=== PATIENT | female | born 1945 | race Caucasian/White ===

== ENCOUNTER 2018-03-04 11:41 | Outpatient (REF) | payer MEDICARE, SELFPAY ==
[2018-03-05 01:59] LABS: HCT 36.2 % (36.0-46.0); HGB 11.3 g/dL (12.0-15.5); Mean Corp. HGB Concentration 31.2 g/dL (32.0-36.0); Mean Corpuscular Hemoglobin 29.4 pg (27.0-33.0); Mean Corpuscular Volume 94.3 fL (80-95); Mean Platelet Volume 12.8 fL (8.0-11.0); Platelet Count 220 x1000/uL (130-400); RBC 3.84 m/cumm (4.00-5.20); RBC Distribution Width 14.3 % (11.7-14.6); White Blood Cell Count 5.42 k/cumm (4.4-10.8)
[2018-03-05 02:09] LABS: Anion Gap 4.3 mmol/L (3-11); BUN 36 mg/dL (7-18); CO2 31.7 mmol/L (21.0-32.0); CREATININE 1.38 mg/dL (0.55-1.02); Calcium 9.1 mg/dL (8.5-10.1); Chloride 104 mmol/L (98-107); Estimated GFR 37.27 (mL/min/1.73m2); Glucose 97 mg/dL (70-100); Potassium 4.4 mmol/L (3.5-5.1); Sodium 140 mmol/L (136-145)
== END 2018-03-04 11:42 ==
LOC: NCHCN 11:41
PROVIDERS: PCP Internal Medicine; Visit Provider Internal Medicine
DX: R53.83 Other fatigue (principal)
CPT/HCPCS: 80048; 85027; 84443

== ENCOUNTER 2019-06-01 13:34 | Outpatient (REF) | payer MEDICARE, MEDICAID, SELFPAY ==
[2019-06-01 21:01] LABS: TSH (W/Ref FT4) 0.09 uIU/mL (0.36-3.74)
[2019-06-01 23:10] LABS: FREE T4 1.38 ng/dL (0.76-1.46)
== END 2019-06-01 13:54 ==
LOC: NCHCN 13:34
PROVIDERS: PCP Internal Medicine; Visit Provider Internal Medicine
DX: E03.9 Hypothyroidism, unspecified (principal)
CPT/HCPCS: 84439; 84443

== ENCOUNTER 2019-07-12 12:20 | Outpatient (REF) | payer MEDICARE, MEDICAID, SELFPAY ==
[2019-07-12 21:16] LABS: TSH 0.24 uIU/mL (0.36-3.74)
== END 2019-07-12 12:40 ==
LOC: NCHCN 12:20
PROVIDERS: PCP Internal Medicine; Visit Provider Internal Medicine
DX: E03.9 Hypothyroidism, unspecified (principal)
CPT/HCPCS: 84443

== ENCOUNTER 2019-08-31 00:02 | Outpatient (REF) | payer MEDICARE, MEDICAID, SELFPAY ==
[2019-08-30 21:57] LABS: TSH 1.38 uIU/mL (0.36-3.74)
== END 2019-08-31 00:22 ==
LOC: NCHCN 00:02
PROVIDERS: PCP Internal Medicine; Visit Provider Internal Medicine
DX: E03.9 Hypothyroidism, unspecified (principal)
CPT/HCPCS: 84443

== ENCOUNTER 2020-01-06 16:27 | Outpatient (REF) | payer MEDICARE, MEDICAID, SELFPAY ==
[2020-01-06 20:40] LABS: HCT 38.7 % (36.0-46.0); HGB 12.3 g/dL (12.0-15.5); Mean Corp. HGB Concentration 31.8 g/dL (32.0-36.0); Mean Corpuscular Hemoglobin 30.1 pg (27.0-33.0); Mean Corpuscular Volume 94.9 fL (80-95); Mean Platelet Volume 13.1 fL (8.0-11.0); Platelet Count 241 x1000/uL (130-400); RBC 4.08 m/cumm (4.00-5.20); RBC Distribution Width 13.7 % (11.7-14.6)
[2020-01-06 21:10] LABS: ALT 25 U/L (14-59); AST 26 U/L (15-37); Albumin 4.5 g/dL (3.4-5.0); Alkaline Phosphatase 78 U/L (46-116); BUN 30 mg/dL (7-18); Bilirubin, Total 0.5 mg/dL (0.2-1.0); CREATININE 1.38 mg/dL (0.55-1.02); Chloride 102 mmol/L (98-107); Estimated GFR 37.17 (mL/min/1.73m2); Glucose 98 mg/dL (74-106); Potassium 4.5 mmol/L (3.5-5.1); Sodium 140 mmol/L (136-145); TSH 1.09 uIU/mL (0.36-3.74); Total Protein 7.4 g/dL (6.4-8.2)
== END 2020-01-06 16:47 ==
LOC: NCHCN 16:27
PROVIDERS: PCP Internal Medicine; Visit Provider Internal Medicine
DX: E03.9 Hypothyroidism, unspecified (principal); I10 Essential (primary) hypertension; R63.4 Abnormal weight loss
CPT/HCPCS: 80053; 85027; 84443

== ENCOUNTER 2020-05-03 22:26 | Outpatient (REF) | payer MEDICARE, MEDICAID, SELFPAY ==
[2020-05-03 22:22] LABS: Absolute Basophil Count 0.02 10^3/uL (0.0-0.2); Absolute Eosinophil Count 0.26 10^3/uL (0.0-0.7); Absolute Lymphocyte Count 1.08 10^3/uL (1.2-3.4); Absolute Monocyte Count 0.51 10^3/uL (0.1-0.8); Absolute Neutrophil Count 2.49 10^3/uL (1.2-6.7); Basophils % 0.5; HCT 35.4 % (36.0-46.0); HGB 11.4 g/dL (11.2-15.7); Lymphocytes % 24.8; MCH 31.1 pg (27.0-33.0); MCHC 32.2 % (32.0-36.0); MCV 96.5 fL (80-95); MPV 13.5 fL (8.0-11.0); Monocytes % 11.7; Nucleated RBC 0 %; RBC 3.67 10^6/uL (3.93-5.22); RDW 13.4 % (11.7-14.6); RDW-SD 47.7 fL; WBC 4.36 10^3/uL (4.4-10.8)
[2020-05-03 22:58] LABS: Platelet Count 202 10^3/uL (130-400)
[2020-05-03 23:08] LABS: ALT 88 U/L (14-59); AST 74 U/L (15-37); Albumin 4.4 g/dL (3.4-5.0); Alkaline Phosphatase 142 U/L (46-116); Anion Gap 6.9 mmol/L (3-11); BUN 45 mg/dL (7-18); Bilirubin, Total 0.3 mg/dL (0.2-1.0); CO2 30.1 mmol/L (21.0-32.0); CREATININE 1.47 mg/dL (0.55-1.02); Calcium 9.7 mg/dL (8.5-10.1); Chloride 102 mmol/L (98-107); Estimated GFR 34.47 (mL/min/1.73m2); Glucose 127 mg/dL (74-106); Potassium 4.5 mmol/L (3.5-5.1); Sodium 139 mmol/L (136-145); TSH 0.72 uIU/mL (0.36-3.74); Total Protein 7.2 g/dL (6.4-8.2); Vitamin B12 652 pg/mL (193-986)
[2020-05-04 04:28] LABS: Vitamin D 25 Total 46.8 ng/ml (30-100)
== END 2020-05-03 22:46 ==
LOC: NCHCN 22:26
PROVIDERS: PCP Internal Medicine; Visit Provider Internal Medicine
DX: R41.0 Disorientation, unspecified (principal); R41.3 Other amnesia; E03.9 Hypothyroidism, unspecified
CPT/HCPCS: 80053; 82306; 82607; 84443; 85025

== ENCOUNTER 2020-05-15 18:54 | Outpatient (REF) | payer MEDICARE, MEDICAID, SELFPAY ==
[2020-05-15 21:53] LABS: ALT 37 U/L (14-59); AST 27 U/L (15-37); Albumin 4.4 g/dL (3.4-5.0); Alkaline Phosphatase 129 U/L (46-116); Bilirubin, Total 0.3 mg/dL (0.2-1.0); Total Protein 7.2 g/dL (6.4-8.2)
[2020-05-23 17:34] LABS: Hepatitis B Surface Ab Positive; Hepatitis B Surface Ag Negative (Negative); Hepatitis C Ab w Rflx HCV PCR Negative (Negative)
[2020-05-23 17:35] LABS: HBs Antibody, Quant 328 mIU/mL (See Note)
== END 2020-05-15 19:14 ==
LOC: NCHCN 18:54
PROVIDERS: PCP Internal Medicine; Visit Provider Internal Medicine
DX: R74.8 Abnormal levels of other serum enzymes (principal)
CPT/HCPCS: 80076; 86706; 86803; 87340; 86704

== ENCOUNTER 2020-05-26 15:38 | Outpatient (REF) | payer MEDICARE, MEDICAID, SELFPAY ==
[2020-05-29 19:58] LABS: Patient Race White; SARS-CoV-2 RNA Undetected (Undetected); SARS-CoV-2 Specimen Source Nasal
== END 2020-05-26 15:58 ==
LOC: NCHCN 15:38
PROVIDERS: PCP Internal Medicine; Visit Provider Internal Medicine
DX: Z20.828 Contact with and (suspected) exposure to other viral communicable diseases (principal)
CPT/HCPCS: U0003

== ENCOUNTER 2020-07-31 15:38 | Outpatient (REF) | payer MEDICARE, MEDICAID, SELFPAY ==
[2020-07-31 21:08] LABS: ALT 66 U/L (14-59); AST 51 U/L (15-37); Albumin 4.4 g/dL (3.4-5.0); Alkaline Phosphatase 146 U/L (46-116); Anion Gap 3.8 mmol/L (3-11); BUN 36 mg/dL (7-18); Bilirubin, Total 0.3 mg/dL (0.2-1.0); CO2 32.2 mmol/L (21.0-32.0); CREATININE 1.31 mg/dL (0.55-1.02); Calcium 9.9 mg/dL (8.5-10.1); Chloride 102 mmol/L (98-107); Estimated GFR 39.37 (mL/min/1.73m2); Glucose 93 mg/dL (74-106); Potassium 4.2 mmol/L (3.5-5.1); Sodium 138 mmol/L (136-145); Total Protein 7.5 g/dL (6.4-8.2)
[2020-07-31 21:12] LABS: Hemoglobin A1C 5.5 % (<5.7)
[2020-07-31 21:44] LABS: COMMENT (LAB VIEW ONLY) 143.26 mg/dL; Microalb ug/mg Crea 23.9 ug/mg Cr
== END 2020-07-31 15:58 ==
LOC: NCHCN 15:38
PROVIDERS: PCP Internal Medicine; Visit Provider Internal Medicine
DX: R13.10 Dysphagia, unspecified (principal); R94.5 Abnormal results of liver function studies; N18.9 Chronic kidney disease, unspecified; R35.8 Other polyuria; G89.29 Other chronic pain; Z79.891 Long term (current) use of opiate analgesic
CPT/HCPCS: 80053; 82043; 82570; 83036

== ENCOUNTER 2020-09-29 16:45 | Outpatient (REF) | payer MEDICARE, MEDICAID, SELFPAY ==
[2020-09-29 21:26] LABS: ALT 28 U/L (14-59); AST 26 U/L (15-37); Albumin 4.1 g/dL (3.4-5.0); Alkaline Phosphatase 134 U/L (46-116); Anion Gap 4.7 mmol/L (3-11); BUN 39 mg/dL (7-18); Bilirubin, Total 0.3 mg/dL (0.2-1.0); CO2 34.3 mmol/L (21.0-32.0); CREATININE 1.2 mg/dL (0.55-1.02); Chloride 104 mmol/L (98-107); Estimated GFR 43.56 (mL/min/1.73m2); Glucose 88 mg/dL (74-106); Potassium 4.2 mmol/L (3.5-5.1); Sodium 143 mmol/L (136-145); Total Protein 7.1 g/dL (6.4-8.2)
== END 2020-09-29 16:46 | disposition home or self-care (01) ==
LOC: NCHCN 16:45
PROVIDERS: PCP Internal Medicine; Visit Provider Internal Medicine
DX: I10 Essential (primary) hypertension (principal); N18.9 Chronic kidney disease, unspecified
CPT/HCPCS: 80053

== ENCOUNTER 2021-01-01 17:02 | Outpatient (REF) | payer MEDICARE, MEDICAID, SELFPAY ==
[2021-01-01 22:06] LABS: ALT 21 U/L (14-59); AST 22 U/L (15-37); Alkaline Phosphatase 89 U/L (46-116); Anion Gap 6.5 mmol/L (3-11); BUN 36 mg/dL (7-18); Bilirubin, Total 0.6 mg/dL (0.2-1.0); CO2 32.5 mmol/L (21.0-32.0); CREATININE 1.3 mg/dL (0.55-1.02); Calcium 9.9 mg/dL (8.5-10.1); Chloride 104 mmol/L (98-107); Estimated GFR 39.72 (mL/min/1.73m2); Glucose 95 mg/dL (74-106); Magnesium 2.4 mg/dL (1.8-2.4); Potassium 4.1 mmol/L (3.5-5.1); Sodium 143 mmol/L (136-145); Total Protein 6.5 g/dL (6.4-8.2)
== END 2021-01-01 17:03 | disposition home or self-care (01) ==
LOC: NCHCN 17:02
PROVIDERS: PCP Internal Medicine; Visit Provider Internal Medicine
DX: B35.1 Tinea unguium (principal); R79.89 Other specified abnormal findings of blood chemistry
CPT/HCPCS: 80053; 83735

== ENCOUNTER 2021-01-22 18:38 | Outpatient (REF) | payer MEDICARE, MEDICAID, SELFPAY ==
[2021-01-22 21:08] LABS: Abs Immature Grans 0.03 10^3/uL (0.0-0.06); Absolute Basophil Count 0.05 10^3/uL (0.0-0.2); Absolute Eosinophil Count 0.13 10^3/uL (0.0-0.7); Absolute Lymphocyte Count 0.96 10^3/uL (1.2-3.4); Absolute Monocyte Count 1.18 10^3/uL (0.1-0.8); Absolute Neutrophil Count 7.09 10^3/uL (1.2-6.7); Basophils % 0.5; Eosinophils % 1.4; HCT 38.7 % (36.0-46.0); HGB 12.2 g/dL (11.2-15.7); Immature Grans % 0.3; Lymphocytes % 10.2; MCH 30.3 pg (27.0-33.0); MCHC 31.5 % (32.0-36.0); MPV 12.5 fL (8.0-11.0); Monocytes % 12.5; Neutrophils % 75.1; Nucleated RBC 0 %; Platelet Count 266 10^3/uL (130-400); RBC 4.03 10^6/uL (3.93-5.22); RDW 13.1 % (11.7-14.6); RDW-SD 46.5 fL; WBC 9.44 10^3/uL (4.4-10.8)
[2021-01-22 21:34] LABS: ALT 23 U/L (14-59); AST 25 U/L (15-37); Albumin 3.8 g/dL (3.4-5.0); Alkaline Phosphatase 119 U/L (46-116); Anion Gap 6.8 mmol/L (3-11); BUN 34 mg/dL (7-18); Bilirubin, Total 0.2 mg/dL (0.2-1.0); CO2 29.2 mmol/L (21.0-32.0); CREATININE 1.2 mg/dL (0.55-1.02); Calcium 9.5 mg/dL (8.5-10.1); Chloride 105 mmol/L (98-107); Estimated GFR 43.56 (mL/min/1.73m2); Glucose 136 mg/dL (74-106); Potassium 4.5 mmol/L (3.5-5.1); Sodium 141 mmol/L (136-145); Total Protein 6.6 g/dL (6.4-8.2)
== END 2021-01-22 18:39 | disposition home or self-care (01) ==
LOC: NCHCN 18:38
PROVIDERS: PCP Internal Medicine; Visit Provider Nurse Practitioner Family
DX: R10.9 Unspecified abdominal pain (principal)
CPT/HCPCS: 80053; 85025

== ENCOUNTER 2021-06-11 22:31 | Outpatient (REF) | payer MEDICARE, MEDICAID, SELFPAY ==
[2021-06-11 22:48] LABS: Abs Immature Grans 0.01 10^3/uL (0.0-0.06); Absolute Basophil Count 0.04 10^3/uL (0.0-0.2); Absolute Eosinophil Count 0.23 10^3/uL (0.0-0.7); Absolute Lymphocyte Count 0.93 10^3/uL (1.2-3.4); Absolute Monocyte Count 0.55 10^3/uL (0.1-0.8); Eosinophils % 5.7; HCT 37.4 % (36.0-46.0); HGB 11.5 g/dL (11.2-15.7); Immature Grans % 0.2; Lymphocytes % 22.9; MCH 27.6 pg (27.0-33.0); MCHC 30.7 % (32.0-36.0); MCV 89.7 fL (80-95); Monocytes % 13.5; Neutrophils % 56.7; Nucleated RBC 0 %; Platelet Count 256 10^3/uL (130-400); RBC 4.17 10^6/uL (3.93-5.22); RDW 14.5 % (11.7-14.6); RDW-SD 47.9 fL; WBC 4.06 10^3/uL (4.4-10.8)
[2021-06-11 23:27] LABS: ALT 17 U/L (14-59); AST 17 U/L (15-37); Albumin 3.7 g/dL (3.4-5.0); Alkaline Phosphatase 104 U/L (46-116); Anion Gap 7.1 mmol/L (3-11); BUN 25 mg/dL (7-18); Bilirubin, Total 0.1 mg/dL (0.2-1.0); CO2 30.9 mmol/L (21.0-32.0); CREATININE 1.3 mg/dL (0.55-1.02); Calcium 9.1 mg/dL (8.5-10.1); Chloride 104 mmol/L (98-107); Estimated GFR 39.61 (mL/min/1.73m2); Glucose 106 mg/dL (74-106); Potassium 4.3 mmol/L (3.5-5.1); Sodium 142 mmol/L (136-145); TSH 0.13 uIU/mL (0.36-3.74); Total Protein 6.7 g/dL (6.4-8.2); Vitamin B12 261 pg/mL (193-986)
== END 2021-06-11 22:32 | disposition home or self-care (01) ==
LOC: NCHCN 22:31
PROVIDERS: PCP Internal Medicine; Visit Provider Internal Medicine
DX: D64.9 Anemia, unspecified (principal); R79.89 Other specified abnormal findings of blood chemistry; M72.0 Palmar fascial fibromatosis [Dupuytren]
CPT/HCPCS: 80053; 82607; 82670; 84443; 85025

== ENCOUNTER 2021-08-20 21:18 | Outpatient (REF) | payer MEDICARE, MEDICAID, SELFPAY ==
[2021-08-20 21:38] LABS: Iron 68 ug/dL (50-170); Total Iron Binding Capacity 302 ug/dL (250-450); Transferrin Sat 23 % (15-50)
[2021-08-21 17:28] LABS: Ferritin 73 ng/mL (10-291)
== END 2021-08-20 21:19 | disposition home or self-care (01) ==
LOC: NCHCN 21:18
PROVIDERS: PCP Internal Medicine; Visit Provider Internal Medicine
DX: D64.9 Anemia, unspecified (principal); E53.8 Deficiency of other specified B group vitamins; E55.9 Vitamin D deficiency, unspecified
CPT/HCPCS: 82306; 82728; 83540; 83550

== ENCOUNTER 2021-11-01 18:46 | Outpatient (REF) | payer MEDICARE, MEDICAID, SELFPAY ==
[2021-11-01 21:50] LABS: Bilirubin Negative (Negative); Blood Trace-intact (Negative); Clarity Cloudy (Clear); Glucose Negative (Negative); Ketones Negative (Negative); Leukocyte Esterase Small (Negative); Nitrite Negative (Negative); Specific Gravity 1.025 (1.005-1.025); Urobilinogen 0.2 EU/dL (Up TO 0.2)
[2021-11-01 22:01] LABS: Bacteria Packed HPF (Negative); Epithelial Cells Moderate HPF (Negative); Other Cells Moderate Renal (Negative); WBC >50 HPF (0-5)
[2021-11-01 22:02] LABS: C & S Indicated? Yes; Crystals Negative HPF (Negative); Mucus Negative (Negative)
== END 2021-11-01 18:47 | disposition home or self-care (01) ==
LOC: NCHCN 18:46
PROVIDERS: PCP Internal Medicine; Visit Provider Internal Medicine
DX: R39.89 Other symptoms and signs involving the genitourinary system (principal)
CPT/HCPCS: 87077; 81003; 81015; 87086; 87186

== ENCOUNTER 2021-12-11 21:20 | Outpatient (REF) | payer MEDICARE, MEDICAID, SELFPAY ==
[2021-12-11 21:35] LABS: Abs Immature Grans 0.01 10^3/uL (0.0-0.06); Absolute Basophil Count 0.04 10^3/uL (0.0-0.2); Absolute Eosinophil Count 0.15 10^3/uL (0.0-0.7); Absolute Lymphocyte Count 1.62 10^3/uL (1.2-3.4); Absolute Monocyte Count 0.54 10^3/uL (0.1-0.8); Absolute Neutrophil Count 3.95 10^3/uL (1.2-6.7); Basophils % 0.6; Eosinophils % 2.4; HCT 35.5 % (36.0-46.0); HGB 11.1 g/dL (11.2-15.7); Immature Grans % 0.2; Lymphocytes % 25.7; MCH 30.4 pg (27.0-33.0); MCHC 31.3 % (32.0-36.0); MCV 97 fL (80-95); MPV 11.8 fL (8.0-11.0); Monocytes % 8.6; Neutrophils % 62.5; Platelet Count 289 10^3/uL (130-400); RBC 3.65 10^6/uL (3.93-5.22); RDW 13.7 % (11.7-14.6); RDW-SD 49.1 fL; WBC 6.31 10^3/uL (4.4-10.8)
[2021-12-11 21:37] LABS: ESR 18 mm/hr (0-30)
[2021-12-11 21:41] LABS: Bilirubin Small (Negative); Blood Negative (Negative); Clarity Clear (Clear); Glucose Negative (Negative); Ketones Trace mg/dL (Negative); Leukocyte Esterase Trace (Negative); Nitrite Negative (Negative); Specific Gravity 1.025 (1.005-1.025); Urobilinogen 0.2 EU/dL (Up TO 0.2); pH 5.5 (5-8)
[2021-12-11 21:42] LABS: C-Reactive Protein 1.08 mg/dL (0.0-0.3)
[2021-12-11 21:55] LABS: Bacteria Few HPF (Negative); C & S Indicated? No/Sq. Contamination; Crystals Negative HPF (Negative); Epithelial Cells Many HPF (Negative); Mucus Moderate (Negative); RBC 0-2 HPF (0-2); WBC 20-50 HPF (0-5)
== END 2021-12-11 21:21 | disposition home or self-care (01) ==
LOC: NCHCN 21:20
PROVIDERS: PCP Internal Medicine; Visit Provider Family Medicine
DX: R53.83 Other fatigue (principal); G31.84 Mild cognitive impairment of uncertain or unknown etiology; Z91.81 History of falling
CPT/HCPCS: 85652; 81003; 81015; 85025; 86140

== ENCOUNTER 2022-03-15 16:29 | Outpatient (REF) | payer MEDICARE, MEDICAID, SELFPAY ==
[2022-03-15 20:55] LABS: Bilirubin Negative (Negative); Blood Negative (Negative); Clarity Clear (Clear); Glucose Negative (Negative); Ketones Negative (Negative); Leukocyte Esterase Negative (Negative); Nitrite Negative (Negative); Specific Gravity 1.015 (1.005-1.025); Urobilinogen 0.2 EU/dL (Up TO 0.2)
== END 2022-03-15 16:30 | disposition home or self-care (01) ==
LOC: NCHCN 16:29
PROVIDERS: PCP Internal Medicine; Visit Provider Internal Medicine
DX: R53.83 Other fatigue (principal); R32 Unspecified urinary incontinence
CPT/HCPCS: 81003

== ENCOUNTER 2022-06-17 13:57 | Outpatient (REF) | payer MEDICARE, MEDICAID, SELFPAY ==
[2022-06-17 15:01] LABS: HCT 33.4 % (36.0-46.0); HGB 10.4 g/dL (11.2-15.7); MCH 30.7 pg (27.0-33.0); MCHC 31.1 % (32.0-36.0); MCV 99 fL (80-95); MPV 11.1 fL (8.0-11.0); Platelet Count 253 10^3/uL (130-400); RBC 3.39 10^6/uL (3.93-5.22); RDW 13.5 % (11.7-14.6); RDW-SD 49.1 fL; WBC 6.28 10^3/uL (4.4-10.8)
[2022-06-17 15:42] LABS: ALT 18 U/L (14-59); AST 27 U/L (15-37); Albumin 3.7 g/dL (3.4-5.0); Alkaline Phosphatase 89 U/L (46-116); Anion Gap 7.3 mmol/L (3-11); BUN 33 mg/dL (7-18); Bilirubin, Total 0.2 mg/dL (0.2-1.0); CO2 29.7 mmol/L (21.0-32.0); CREATININE 1.3 mg/dL (0.55-1.02); Chloride 105 mmol/L (98-107); Estimated GFR 41.83 (mL/min/1.73m2); Glucose 115 mg/dL (74-106); Potassium 4.1 mmol/L (3.5-5.1); Sodium 142 mmol/L (136-145); Vitamin B12 1639 pg/mL (193-986)
== END 2022-06-17 13:58 | disposition home or self-care (01) ==
LOC: NCHCN 13:57
PROVIDERS: PCP Internal Medicine; Visit Provider Internal Medicine
DX: D64.9 Anemia, unspecified (principal); R79.89 Other specified abnormal findings of blood chemistry; R41.3 Other amnesia; E03.9 Hypothyroidism, unspecified
CPT/HCPCS: 80053; 85027; 82607

== ENCOUNTER 2022-06-28 11:14 | Outpatient (REF) | payer MEDICARE, MEDICAID, SELFPAY ==
[2022-06-28 18:36] LABS: Bilirubin Negative (Negative); Blood Negative (Negative); Clarity Clear (Clear); Glucose Negative (Negative); Ketones Negative (Negative); Leukocyte Esterase Trace (Negative); Nitrite Negative (Negative); Urobilinogen 0.2 EU/dL (Up TO 0.2); pH 5.5 (5-8)
[2022-06-28 18:49] LABS: Bacteria Few HPF (Negative); C & S Indicated? Yes; Casts Negative LPF (Negative); Crystals Negative HPF (Negative); Epithelial Cells Few HPF (Negative); Mucus Negative (Negative); RBC 0-2 HPF (0-2)
== END 2022-06-28 11:15 | disposition home or self-care (01) ==
LOC: NCHCN 11:14
PROVIDERS: PCP Internal Medicine; Visit Provider Internal Medicine
DX: R30.0 Dysuria (principal)
CPT/HCPCS: 81003; 81015; 87086

== ENCOUNTER 2023-03-14 12:24 | Outpatient (REF) | payer MEDICARE, MEDICAID, SELFPAY ==
[2023-03-14 15:28] LABS: Abs Immature Grans 0.01 10^3/uL (0.0-0.06); Absolute Basophil Count 0.06 10^3/uL (0.0-0.2); Absolute Eosinophil Count 0.17 10^3/uL (0.0-0.7); Absolute Lymphocyte Count 1.17 10^3/uL (1.2-3.4); Absolute Monocyte Count 0.66 10^3/uL (0.1-0.8); Basophils % 0.9; Eosinophils % 2.6; HCT 31.4 % (36.0-46.0); HGB 9.6 g/dL (11.2-15.7); Immature Grans % 0.2; Lymphocytes % 17.8; MCH 29.4 pg (27.0-33.0); MCHC 30.6 % (32.0-36.0); MCV 96 fL (80-95); MPV 10.7 fL (8.0-11.0); Neutrophils % 68.5; Platelet Count 310 10^3/uL (130-400); RBC 3.27 10^6/uL (3.93-5.22); RDW 12.4 % (11.7-14.6); RDW-SD 43.3 fL; WBC 6.57 10^3/uL (4.4-10.8)
[2023-03-14 17:09] LABS: ALT 16 U/L (14-59); AST 20 U/L (15-37); Albumin 3.2 g/dL (3.4-5.0); Alkaline Phosphatase 84 U/L (46-116); BUN 27 mg/dL (7-18); Bilirubin, Total 0.3 mg/dL (0.2-1.0); CREATININE 1.3 mg/dL (0.55-1.02); Calcium 9.1 mg/dL (8.5-10.1); Chloride 104 mmol/L (98-107); Estimated GFR 41.57 (mL/min/1.73m2); Glucose 94 mg/dL (74-106); Potassium 4.6 mmol/L (3.5-5.1); Sodium 140 mmol/L (136-145); TSH 0.59 uIU/mL (0.36-3.74); Total Protein 6.9 g/dL (6.4-8.2)
[2023-03-14 17:30] LABS: Vitamin D 25 Total 17.7 ng/mL (30-100)
== END 2023-03-14 12:25 | disposition home or self-care (01) ==
LOC: NCHCN 12:24
PROVIDERS: PCP Internal Medicine; Visit Provider Internal Medicine
DX: E03.9 Hypothyroidism, unspecified (principal); D64.9 Anemia, unspecified; N18.30 Chronic kidney disease, stage 3 unspecified; E55.9 Vitamin D deficiency, unspecified
CPT/HCPCS: 80053; 82306; 84443; 85025

== ENCOUNTER → 2023-10-02 14:07 | Outpatient (BNVA) | payer MEDICARE, MEDICAID, SELFPAY | PROVIDERS: PCP Internal Medicine; Referring Provider Nurse Practitioner Family; Visit Provider Psychiatry & Neurology Neurology | DX: G31.84 Mild cognitive impairment of uncertain or unknown etiology (principal); G25.0 Essential tremor; G62.9 Polyneuropathy, unspecified | CPT/HCPCS: 99205 ==

== ENCOUNTER 2023-11-12 15:20 | Outpatient (REF) | payer MEDICARE, MEDICAID, SELFPAY ==
[2023-11-12 21:04] LABS: HCT 36.3 % (36.0-46.0); HGB 11.5 g/dL (11.2-15.7); MCH 30.6 pg (27.0-33.0); MCHC 31.7 % (32.0-36.0); MCV 97 fL (80-95); MPV 11.4 fL (8.0-11.0); Platelet Count 293 10^3/uL (130-400); RBC 3.76 10^6/uL (3.93-5.22); RDW 13.6 % (11.7-14.6); RDW-SD 48.5 fL; WBC 5.39 10^3/uL (4.4-10.8)
[2023-11-12 23:08] LABS: ALT 17 U/L (14-59); AST 16 U/L (15-37); Albumin 3.7 g/dL (3.4-5.0); Alkaline Phosphatase 76 U/L (46-116); Anion Gap 9.6 mmol/L (3-11); BUN 24 mg/dL (7-18); Bilirubin, Total 0.3 mg/dL (0.2-1.0); CO2 28.4 mmol/L (21.0-32.0); CREATININE 1.2 mg/dL (0.55-1.02); Calcium 9.3 mg/dL (8.5-10.1); Chloride 105 mmol/L (98-107); Estimated GFR 45.76 (mL/min/1.73m2); Glucose 100 mg/dL (74-106); Potassium 4.7 mmol/L (3.5-5.1); Sodium 143 mmol/L (136-145); TSH 0.39 uIU/Ml (0.36-3.74); Total Protein 6.5 g/dL (6.4-8.2); Vitamin B12 217 pg/mL (193-986)
== END 2023-11-12 15:21 | disposition home or self-care (01) ==
LOC: NCHCN 15:20
PROVIDERS: PCP Internal Medicine; Visit Provider Internal Medicine
DX: E03.9 Hypothyroidism, unspecified (principal); N18.30 Chronic kidney disease, stage 3 unspecified
CPT/HCPCS: 80053; 85027; 82607; 84443

== ENCOUNTER 2025-01-12 19:35 | Outpatient (REF) | payer MEDICARE, MEDICAID, SELFPAY ==
[2025-01-12 21:50] LABS: HCT 35.1 % (36.0-46.0); HGB 11.3 g/dL (11.2-15.7); MCH 31.8 pg (27.0-33.0); MCHC 32.2 % (32.0-36.0); MCV 99 fL (80-95); MPV 11.9 fL (8.0-11.0); Platelet Count 242 10^3/uL (130-400); RBC 3.55 10^6/uL (3.93-5.22); RDW 12.7 % (11.7-14.6); RDW-SD 46.2 fL; WBC 4.84 10^3/uL (4.4-10.8)
[2025-01-12 22:35] LABS: Anion Gap 5.5 mmol/L (3-11); BUN 29 mg/dL (7-18); CO2 29.5 mmol/L (21.0-32.0); Calcium 8.9 mg/dL (8.5-10.1); Chloride 105 mmol/L (98-107); Estimated GFR 45.48 (mL/min/1.73m2); Glucose 94 mg/dL (74-106); Potassium 4.7 mmol/L (3.5-5.1); Sodium 140 mmol/L (136-145); TSH 0.04 uIU/mL (0.36-3.74); Vitamin D 25 Total 32 ng/mL (30-100)
== END 2025-01-12 19:36 | disposition home or self-care (01) ==
LOC: NCHCN 19:35
PROVIDERS: PCP Internal Medicine; Visit Provider Internal Medicine
DX: N18.30 Chronic kidney disease, stage 3 unspecified (principal); E03.9 Hypothyroidism, unspecified; E55.9 Vitamin D deficiency, unspecified; E53.8 Deficiency of other specified B group vitamins; D64.9 Anemia, unspecified
CPT/HCPCS: 80048; 82306; 85027; 84443

== ENCOUNTER 2025-02-09 17:49 | Outpatient (REF) | payer MEDICARE, MEDICAID, SELFPAY ==
[2025-02-09 20:11] LABS: Glucose Negative (Negative)
[2025-02-09 20:23] LABS: C & S Indicated? No; RBC Negative HPF (0-2)
== END 2025-02-09 17:50 | disposition home or self-care (01) ==
LOC: NCHCN 17:49
PROVIDERS: PCP Internal Medicine; Visit Provider Internal Medicine
DX: R35.0 Frequency of micturition (principal); R82.89 Other abnormal findings on cytological and histological examination of urine
CPT/HCPCS: 81003; 81015

== ENCOUNTER 2025-02-28 16:20 | Outpatient (REF) | payer MEDICARE, MEDICAID, SELFPAY ==
[2025-02-28 21:57] LABS: Calculated LDL 252 mg/dL (<100); Cholesterol 344 mg/dL (<200); HDL Cholesterol 77 mg/dL (>or=50); Triglyceride 78 mg/dL (<150); Vitamin B12 1995 pg/mL (193-986)
== END 2025-02-28 16:21 | disposition home or self-care (01) ==
LOC: NCHCN 16:20
PROVIDERS: PCP Internal Medicine; Visit Provider Internal Medicine
DX: I67.9 Cerebrovascular disease, unspecified (principal); E53.8 Deficiency of other specified B group vitamins
CPT/HCPCS: 80061; 82607

== ENCOUNTER 2025-03-23 15:57 | Outpatient (REF) | payer MEDICARE, MEDICAID, SELFPAY ==
[2025-03-23 15:00] LABS: TSH 0.12 uIU/mL (0.36-3.74)
== END 2025-03-23 15:58 | disposition home or self-care (01) ==
LOC: NCHCN 15:57
PROVIDERS: PCP Internal Medicine; Visit Provider Internal Medicine
DX: E03.9 Hypothyroidism, unspecified (principal)
CPT/HCPCS: 84443

== ENCOUNTER 2025-05-16 16:48 | Outpatient (REF) | payer MEDICARE, MEDICAID, SELFPAY ==
[2025-05-16 21:53] LABS: TSH 0.12 uIU/mL (0.36-3.74)
== END 2025-05-16 16:49 | disposition home or self-care (01) ==
LOC: NCHCN 16:48
PROVIDERS: PCP Internal Medicine; Visit Provider Internal Medicine
DX: E03.9 Hypothyroidism, unspecified (principal)
CPT/HCPCS: 84443